=== PATIENT | female | born 1985 | race Caucasian/White ===

== ENCOUNTER 2023-07-10 18:15 | Emergency (ER) | payer BC, SELFPAY ==
--- NOTE | 2023-07-10 18:19 | ED.URI ---
HPI - URI/Sore Throat General Chief Complaint: Headache Stated Complaint: headaches,vomiting, hot Time Seen by Provider: 07/10/23 18:19 Source: patient Mode of arrival: ambulatory Limitations: no limitations History of Present Illness HPI Narrative: Jie is a 37-year-old female patient presenting to the clinic today with complaints of feeling hot, headache, nausea, vomiting, and photosensitivity. Symptoms have been going on for 1.5 weeks. She reports she is having pain behind her right eye that is radiating into the parietal occipital lobe. She denies any visual changes or dizziness. Rates pain 10/10. Has been taking Tylenol and ibuprofen without relief. MD elicited complaint: other (Headache, vomiting) Related Data Home Medications Medication Instructions Recorded Confirmed No Home Medications 07/10/23 07/10/23 Allergies Allergy/AdvReac Type Severity Reaction Status Date / Time No Known Allergies Allergy Verified 07/10/23 18:33 Review of Systems Review of Systems: Pertinent positives per HPI. Patient denies any fever, chills, rash, visual changes, dizziness, cough, shortness of breath, chest pain, palpitations, diarrhea, constipation, abdominal pain, or any urinary issues. PMFSH Comments At the time of my signature, I reviewed and agree with the nursing past medical, surgical, social, and family history. There is no relevant family history pertinent to the patient complaint. Exam Narrative: General: Well-developed, well nourished, in no apparent distress Head: Normocephalic, atraumatic Eyes: Pupils equally round and reactive to light bilaterally, EOM intact, sclera and conjunctive clear, no discharge, lids normal Ears: TMs intact and clear, ear canals clear, no drainage, grossly hearing normal. Nose: Nares patent, no discharge, no inflammation, no sinus tenderness. Mouth: Oropharynx without lesions or masses, good dentition, MMM. Tongue midline, even rise and fall of uvula Neck: Supple, trachea midline, no enlargement of anterior or posterior cervical nodes, no thyroid masses or goiter palpable. Cardio: Regular rate and rhythm, s1 and s2 normal, no murmur appreciated. Resp: Clear to auscultation bilaterally anteriorly and posteriorly, no rhonchi, rales, wheezing or rubs Musculoskeletal: No deformity, non-tender to palpation, grossly normal range of motion, muscle strength strong and equal, peripheral pulse strong, no edema, no cyanosis, normal gait and station Neuro: Alert and oriented x4 with normal speech, no focal deficits, cranial nerves I through XII intact, muscle strength 5 out of 5, sensation intact bilaterally. Course Course Emergency Course: Portions of this record may have been created with voice recognition software. Level of Care: Express Care Visit Vital Signs Vital signs: Vital signs reviewed Transfer Transfered to: [facility] Transportation: Other (private car) Transfer rationale: Headache, nausea, vomiting, photosensitivity-no history of migraine headache. Worst headache of patient's life Accepting physician: Sofia Transfer comments: Private car MDM - URI/Sore Throat MDM Narrative Medical decision making narrative: At the time of visit patient in a dim room and appears to be in significant pain. Rates pain 10 and 10 currently to the right side of her head with associated n/v/photosensitivity. No history of Migraine MURRELL. Has taken tylenol/motrin for pain without relief. Patient appears to be nontoxic. Symptoms have been going on x 1.5 weeks Plan:Recommend transfer to the ER for further evaluation for head CT. Patient would like to go to closest facility. Contacted Sofia at [facility] and she accepts patient for transfer. Transfer via private car by family member Differential Diagnosis Differential diagnosis: Likely other (Migraine headache, cluster headache, intracranial hemorrhage, tension headache, brain mass) Discharge Plan Discharge Clinical Impress
[2023-07-10 18:40] VITALS: BP 118/57; PULSE 65; RESP 18; TEMP 36.8; O2SAT 99
== END 2023-07-10 18:57 | disposition short-term general hospital (02) ==
PROVIDERS: Emergency Provider Nurse Practitioner Family
DX: R51.9 Headache, unspecified (principal)
CPT/HCPCS: 99203; G0463